=== PATIENT | female | born 1955 | race Caucasian/White ===

== ENCOUNTER → 2024-05-21 12:04 | Outpatient (REF) | payer MEDICARE, SELFPAY | LOC: RAD 12:04 | PROVIDERS: ATTENDING PHYSICIAN Nurse Practitioner | DX: R42 Dizziness and giddiness (principal) | CPT/HCPCS: 71046 ==

== ENCOUNTER → 2025-05-10 14:24 | Outpatient (REF) | payer MEDICARE, SELFPAY ==
[2025-05-10 16:24] LABS: Hematocrit 45.5 % (37.0-47.0); Hemoglobin 15.0 g/dL (12.0-16.0); Mean Corp Hgb Conc. 33.0 g/dL (33.0-37.0); Mean Corpuscular Volume 90.1 fL (81.0-99.0); Platelet Count 190 10^3/uL (130-400); Red Cell Dist. Width 13.6 % (11.5-14.5)
[2025-05-10 16:33] LABS: Nucleated Red Blood Cells % 0 %
[2025-05-10 16:45] LABS: ALT (SGPT) 23 U/L (0-35); AST (SGOT) 30 U/L (14-36); Albumin 4.7 g/dl (3.5-5.0); Alkaline Phosphatase 75 U/L (38-126); Blood Urea Nitrogen 25 mg/dl (7-17); Calcium 9.6 mg/dl (8.4-10.2); Carbon Dioxide 29 mmol/L (22-30); Chloride 104 mmol/L (98-107); Glucose 95 mg/dl (70-99); HDL Cholesterol 33 mg/dl; LDL Cholesterol, Calculated 125 mg/dl; Potassium 4.9 mmol/L (3.5-5.1); Sodium 138 mmol/L (135-145); Total Protein 8.2 g/dl (6.3-8.2); Very Low Density Lipoprotein 65 mg/dl (0-30); eGFR > 60.00
[2025-05-10 17:14] LABS: TSH 1.79 uIU/ml (0.47-4.68)
[2025-05-11 09:40] LABS: Glycohemoglobin (HgbA1c) 5.9 % (4.0-5.6)
== END ==
LOC: RAD 14:24
PROVIDERS: ATTENDING PHYSICIAN Nurse Practitioner
DX: M79.672 Pain in left foot (principal); M25.561 Pain in right knee; I10 Essential (primary) hypertension; R42 Dizziness and giddiness; R94.31 Abnormal electrocardiogram [ECG] [EKG]; E78.5 Hyperlipidemia, unspecified; R73.01 Impaired fasting glucose; N28.9 Disorder of kidney and ureter, unspecified; F41.8 Other specified anxiety disorders; Z72.0 Tobacco use
CPT/HCPCS: 36415; 73564; 73620; 80053; 80061; 83036; 84443; 85025